=== PATIENT | male | born 1965 ===

== ENCOUNTER 2017-11-02 11:12 | Day surgery (SDC) | payer BC ==
[2017-11-02 11:22] VITALS: BMI 28.9
--- NOTE | 2017-11-02 11:31 | ED PDOC ---
HPI: General Adult Time Seen by Provider: 11/02/17 11:31 Chief Complaint (Provider): abdominal pain History Per: Patient Additional Complaint(s): 52-year-old male presents to emergency room for evaluation of obstructing bladder stone. Patient is under the care of Dr. Benedict who tried to remove stone in his office but was unable to. Dr. Benedict sent patient to ER for further evaluation. Patient complains of generalized abdominal pain with nausea but no vomiting. PMD: Dr. Rodrigues Past Medical History Reviewed: Historical Data, Nursing Documentation, Vital Signs Vital Signs: Last Vital Signs Temp 98.5 F 11/02/17 11:28 Pulse 78 11/02/17 11:28 Resp 20 11/02/17 11:28 BP 120/80 11/02/17 11:28 Pulse Ox 97 11/02/17 12:48 - Medical History PMH: Diabetes, HTN - Surgical History Surgical History: Coronary Stent - Family History Family History: States: No Known Family Hx - Social History Current smoker - smoking cessation education provided: No Ex-Smoker (has not smoked in the last 12 months): Yes Alcohol: None Drugs: Denies - Home Medications Home Medications: Ambulatory Orders Medication Instructions Recorded Aspirin [Ecotrin] 81 mg PO DAILY 11/02/17 Calcium Carbonate [Oscal] 1 tab PO DAILY 11/02/17 Glyburide/Metformin HCl 1 tab PO TID 11/02/17 [Glyburide-Metformin 2.5-500 mg] Naproxen [Naprosyn] 500 mg PO BID PRN 11/02/17 Olmesartan Medoxomil [Benicar] 5 mg PO DAILY 11/02/17 Tamsulosin [Flomax] 0.4 mg PO DAILY 11/02/17 Vitamin B Complex [Super B-50 1 cap PO DAILY 11/02/17 Complex] - Allergies Allergies/Adverse Reactions: Allergies Allergy/AdvReac Type Severity Reaction Status Date / Time No Known Allergies Allergy Verified 11/02/17 11:33 Review of Systems ROS Statement: Except As Marked, All Systems Reviewed And Found Negative Constitutional: Negative for: Fever, Chills Gastrointestinal: Negative for: Nausea Genitourinary Male: Positive for: Dysuria Physical Exam - Reviewed Nursing Documentation Reviewed: Yes Vital Signs Reviewed: Yes - Physical Exam Appears: Positive for: Well, Non-toxic, No Acute Distress Skin: Positive for: Normal Color. Negative for: Rash Eye Exam: Positive for: Normal appearance Cardiovascular/Chest: Positive for: Regular Rate, Rhythm Respiratory: Positive for: Normal Breath Sounds Gastrointestinal/Abdominal: Positive for: Tenderness (Mild distention and tenderness overlying right lower quadrant and suprapubic region). Negative for : Rebound Back: Negative for: L CVA Tenderness, R CVA Tenderness Extremity: Positive for: Normal ROM Neurologic/Psych: Positive for: Alert, Oriented - Laboratory Results Result Diagrams: 11/02/17 12:18 11/02/17 12:18 - ECG Interpretation Of ECG: SR 69 bpm, with PVC's, reviewed by PA and ED attending O2 Sat by Pulse Oximetry: 97 Pulse Ox Interpretation: Normal - Other Rad CXR X-Ray: Interpreted by Me, Viewed By Me X-Ray Interpretation: No acute finding Medical Decision Making Medical Decision Makin52 y/o with abd pain and obstructing bladder stone plan: NPO CBC CMP PT/PTT CXR EKG IVF Patient was offered pain medication but he declined. Case was d/w Dr. Benedict, patient's urologist, who states to admit patient to his service and patient will go to OR at approximately 2:30 PM today. Patient is aware of and agrees with plan. Disposition - Clinical Impression Clinical Impression: Bladder stone - Patient ED Disposition Is Patient to be Admitted: Yes - Disposition Disposition Time: 12:26 Condition: FAIR - Pt Status Changed To: Hospital Disposition Of: Inpatient - Admit Certification Admit to Inpatient:: After my assessment, the patient will require hospitalization for at least two midnights. This is because of the severity of symptoms shown, intensity of services needed, and/or the medical risk in this patient being treated as an outpatient. Results - Lab Results Lab Results: 11/02/17 11/02/17 11/02/17 12:45 12:18 12:18 WBC RBC Hgb Hct MCV MCH MCHC RDW Plt Count MPV Neut % (Auto) Lymph % (Auto) [place] % (Auto) Eos % (Auto) Baso % (Auto) Neut # (Auto) Lymph # (Auto) [place] # (Auto) Eos # (Auto) Baso # (Auto) PT 10.8 INR 1.0 APTT 29.5 Sodium 139 Potassium 3.9 Chloride 101 Carbon Dioxide 30 Anion Gap 12 BUN 19 Creatinine 0.8 Est GFR ( Amer) > 60 Est GFR (Non-Af Amer) > 60 Random Glucose 186 H Calcium 9.2 Total Bilirubin 0.7 AST 43 ALT 62 Alkaline Phosphatase 97 Total Protein 7.1 Albumin 4.0 Globulin 3.0 Albumin/Globulin Ratio 1.3 Urine Color Yellow Urine Clarity Slighty-cloudy Urine pH 6.0 Ur Specific [place] 1.015 Urine Protein 30 Urine Glucose (UA) >=500 Urine Ketones Negative Urine Blood Large Urine Nitrate Negative Urine Bilirubin Negative Urine Urobilinogen 0.2-1.0 Ur Leukocyte Esterase Neg Urine RBC (Auto) 240 H Urine Microscopic WBC 5 Ur Squamous Epith Cells < 1 Urine Bacteria Rare 11/02/17 12:18 WBC 7.3 RBC 4.79 Hgb 14.9 Hct 43.4 MCV 90.6 MCH 31.2 H MCHC 34.4 RDW 13.1 Plt Count 222 MPV 8.2 Neut % (Auto) 56.5 Lymph % (Auto) 28.0 [place] % (Auto) 10.0 Eos % (Auto) 5.0 H Baso % (Auto) 0.5 Neut # (Auto) 4.1 Lymph # (Auto) 2.0 [place] # (Auto) 0.7 Eos # (Auto) 0.4 Baso # (Auto) 0.0 PT INR APTT Sodium Potassium Chloride Carbon Dioxide Anion Gap BUN Creatinine Est GFR ( Amer) Est GFR (Non-Af Amer) Random Glucose Calcium Total Bilirubin AST ALT Alkaline Phosphatase Total Protein Albumin Globulin Albumin/Globulin Ratio Urine Color Urine Clarity Urine pH Ur Specific [place] Urine Protein Urine Glucose (UA) Urine Ketones Urine Blood Urine Nitrate Urine Bilirubin Urine Urobilinogen Ur Leukocyte Esterase Urine RBC (Auto) Urine Microscopic WBC Ur Squamous Epith Cells Urine Bacteria
[2017-11-02] MEDS ORDERED: Sodium Chloride 0.9% 1,000 ML IV STA (11:50)
[2017-11-02 12:35] LABS: BASO % 0.5 % (0.0-2.0); EOS # 0.4 K/uL (0.0-0.7); HEMOGLOBIN 14.9 g/dL (12.0-18.0); MEAN CELL VOLUME 90.6 fl (80.0-94.0); MEAN CORPUSCULAR HEMOGLOBIN 31.2 pg (27.0-31.0); MEAN CORPUSCULAR HGB CONC 34.4 g/dL (33.0-37.0); MEAN PLATELET VOLUME 8.2 fl (7.2-11.7); MONO # 0.7 K/uL (0.0-0.8); NEUT # 4.1 K/uL (1.8-7.0); NEUT % 56.5 % (50.0-75.0); NRBC % 0.1 % (0.0-0.0); RBC 4.79 Mil/uL (4.40-5.90); RED CELL DISTRIBUTION WIDTH 13.1 % (11.5-14.5); WHITE BLOOD COUNT 7.3 K/uL (4.8-10.8)
[2017-11-02 12:36] LABS: PROTHROMBIN TIME 10.8 Seconds (9.8-13.1)
[2017-11-02 12:38] LABS: PARTIAL THROMBOPLASTIN TIME 29.5 Seconds (25.6-37.1)
[2017-11-02 12:41] LABS: ALB/GLOB RATIO 1.3 (1.0-2.1); ALT/SGPT 62 U/L (21-72); AST/SGOT 43 U/L (17-59); BLOOD UREA NITROGEN 19 mg/dl (9-20); CALCIUM 9.2 mg/dL (8.4-10.2); GFR NON-AFRICAN AMERICAN > 60
[2017-11-02 13:00] LABS: SQUAMOUS EPITHIAL < 1 /hpf (0-5); URINE BACTERIA RARE (<OCC); URINE BILIRUBIN NEGATIVE (NEGATIVE); URINE CLARITY SLIGHTY-CLOUDY (Clear); URINE COLOR YELLOW (YELLOW); URINE GLUCOSE (UA) >=500 mg/dL (Normal); URINE LEUKOCYTE ESTERASE NEG Leu/uL (Negative); URINE PROTEIN 30 mg/dL (NEGATIVE); URINE UROBILINOGEN 0.2-1.0 mg/dL (0.2-1.0)
[2017-11-02 13:01] LABS: URINE BLOOD LARGE (NEGATIVE)
--- NOTE | 2017-11-02 13:11 | RAD ---
Date of service: 11/02/2017 HISTORY: clearance COMPARISON: No prior. FINDINGS: LUNGS: No active pulmonary disease. PLEURA: No significant pleural effusion identified, no pneumothorax apparent. CARDIOVASCULAR: Normal. OSSEOUS STRUCTURES: No significant abnormalities. VISUALIZED UPPER ABDOMEN: Normal. OTHER FINDINGS: None. IMPRESSION: No active disease.
[2017-11-02] MEDS ORDERED: Liquid Adhesive TOP ONE (14:09)
[2017-11-02] MEDS ORDERED: cefTRIAXone (Rocephin) 1 gm Inj ONE (14:10)
[2017-11-02] MEDS ORDERED: Propofol 10 mg/ml Inj (20 ML) ONE ×2 (15:23→15:50)
[2017-11-02] MEDS ORDERED: Midazolam 2 MG/2 ML VIAL ONE (15:24)
[2017-11-02] MEDS ORDERED: Lidocaine 2% Jelly (Uro-Jet) ONE (15:49)
[2017-11-02] MEDS ORDERED: Lactated Ringer's 1,000 ML IV ONE (15:50)
[2017-11-02 15:54] VITALS: RESP 18
[2017-11-02] MEDS ORDERED: Lactated Ringer's 1,000 ML IV SCH (16:15)
[2017-11-02 17:35] VITALS: BP 147/93; PULSE 66; TEMP 9.7; O2SAT 99
--- NOTE | 2017-11-02 22:43 | CARD ---
APPROVED REPORT Date of service: 11/02/2017 EKG Measurement Heart [id number] <Conclusion> Sinus rhythm with occasional premature ventricular complexes Minimal voltage criteria for LVH, may be normal variant Inferior infarct, age undetermined T wave abnormality, consider lateral ischemia Abnormal ECG
--- NOTE | 2017-11-03 02:05 | OP ---
Copied To: Jhonny Benedict MD Attending MD: Jhonny Benedict MD PROCEDURE DATE: 11/02/2017 PREOPERATIVE DIAGNOSIS: Obstructing bladder calculus. POSTOPERATIVE DIAGNOSIS: Obstructing bladder calculus. PROCEDURES PERFORMED: Cystoscopy with excision of bladder calculus. DESCRIPTION OF PROCEDURE: The patient was placed on the operating room table in a dorsal lithotomy position. IV sedation was administered at this time. Using a #19 cystoscope under direct vision, I entered into the bladder. At the level of the bladder neck, there seemed to be an obstructing stone at the level of the bladder neck. I used visual reference to engage the stone in a grasping forceps, and in one direct pole, I removed the entire stone out. The stone was sent for specimen analysis. The patient then was taken from the operating room in good condition. Jhonny Benedict MD
== END 2017-11-02 17:50 | disposition home or self-care (01) ==
LOC: H.ER 11:12 → H.SDS 12:46
PROVIDERS: ATTEND Urology
DX: N21.0 Calculus in bladder (principal)
CPT/HCPCS: 52235; 71045; 80053; 81003; 82355; 82948; 85025; 85610; 85730; 87086; 93005; 96360; 99285; J2250; J2704; J3010; J7030; J7120